=== PATIENT | male | born 2000 | race Caucasian/White ===

== ENCOUNTER 2024-06-26 09:59 | Emergency (ER) | payer MEDICAID ==
[~2024-06-26] VITALS: Ht 167.6 cm; Wt 57.0 kg
[2024-06-26 10:10] VITALS: BP 132/84; PULSE 127; RESP 16; TEMP 98.9; O2SAT 98
[2024-06-26] MEDS ORDERED: AMOX500C2 PO (10:16)
== END 2024-06-26 10:25 | disposition home or self-care (01) ==
LOC: ER 10:00
DX: J03.90 Acute tonsillitis, unspecified (principal)
CPT/HCPCS: 99283